=== PATIENT | female | born 1955 | race American Indian/Alaskan Native ===

== ENCOUNTER 2017-06-13 06:37 | Day surgery (SDC) | payer OTHER ==
[2017-06-13] MEDS ORDERED: WATER FOR IRRIG STERILE IR ONE (07:14)
--- NOTE | 2017-06-13 07:34 | Anesthesia Consultation ---
Anesthesia Consult and Med Hx Date of service: 06/13/17 - Airway Anesthetic Teeth Evaluation: Good, Dentures (permanent upper) ROM Head & Neck: Adequate Mental/Hyoid Distance: Adequate Mallampati Class: Class II Intubation Access Assessment: Probably Good - Pulmonary Exam CTA: Yes - Cardiac Exam Cardiac Exam: RRR - Pre-Operative Health Status ASA Pre-Surgery Classification: ASA3 Proposed Anesthetic Plan: MAC - Cardiovascular System Hx Hypertension: Yes - Endocrine Hx Non-Insulin Dependent Diabetes: Yes
--- NOTE | 2017-06-13 07:34 | Anesthesia Day of Surgery ---
Anesthesia Day of Surgery - Day of Surgery Patient Examined: Yes Patient H&P Reviewed: Yes Patient is NPO: Yes
[2017-06-13] MEDS ORDERED: DIPRIVAN 10 MG/ML IV ONE ×2 (07:35)
[2017-06-13] MEDS ORDERED: NACL 0.9% 1000 ML 1,000 ML IV SCH (08:00)
--- NOTE | 2017-06-13 09:28 | Short Stay Summary ---
Short Stay Documentation - Allergies and Medications Current Medications: Allergies No Known Allergies Allergy (Verified 06/12/17 12:33) Home Medications Medication Instructions Recorded Confirmed Last Taken Type Adult Low Dose Aspirin EC 81 mg PO DAILY 06/12/17 06/12/17 Unknown History Ergocalciferol 50,000 units PO QWEEK 06/12/17 06/13/17 06/10/17 History Glimepiride 4 mg PO DAILY 06/12/17 06/12/17 Unknown History Glipizide 10 mg PO DAILY 06/12/17 06/13/17 06/12/17 History Latanoprost 0.005% 1 drop OU HS 06/12/17 06/13/17 06/12/17 History Lisinopril 20 mg PO DAILY 06/12/17 06/13/17 06/12/17 History Pravastatin 20 mg PO DAILY 06/12/17 06/13/17 06/12/17 History metFORMIN 1,000 mg PO BID 06/12/17 06/13/17 06/12/17 History Active Medications Sodium Chloride (Nacl 0.9% 1000 Ml) 1,000 mls @ 50 mls/hr IV DIRECT ISATU Last Admin: 06/13/17 08:12 Dose: 50 mls/hr - Brief post op/procedure progress note Date of procedure: 06/13/17 Pre-op diagnosis: colon cancer screening Post-op diagnosis: same (1. Recta polyp 2. Internal hemorrhoids 3. Very poor prep) Procedure: Colonoscopy with cold biopsy polypectomy Anesthesia: MAC Findings: as above Surgeon: DENISA PAREDES Estimated blood loss: none Pathology: list (Rectal polyp) Specimen disposition: to lab Condition: stable - Disposition Condition at discharge: Stable Disposition: [id number] TO HOME OR SELFCARE Short Stay Discharge Plan Activity: no restrictions Weight Bearing Status: Full Weight Bearing Diet: regular, low salt Follow up with: GRISEL CORDERO MD [Primary Care Provider] - 7 Days
--- NOTE | 2017-06-13 09:58 | Post Anesthesia Evaluation ---
- Post Anesthesia Evaluation Patient Participated: Yes Airway Patent: Yes Stable Respiratory Function: Yes Nausea/Vomiting: No Temp > 96.8F: Yes Pain Manageable: Yes Adequeate Hydration: Yes Anesthesia Complications: No Block Receding Appropriately: Not Applicable (2030)
[2017-06-13 10:24] VITALS: BP 134/76
== END 2017-06-13 06:38 | disposition home or self-care (01) ==
LOC: GIO 06:37
PROVIDERS: ATTEND Internal Medicine Gastroenterology
DX: Z12.11 Encounter for screening for malignant neoplasm of colon (principal); K63.5 Polyp of colon; K64.0 First degree hemorrhoids; I10 Essential (primary) hypertension; E11.9 Type 2 diabetes mellitus without complications; Z79.84 Long term (current) use of oral hypoglycemic drugs; Z79.899 Other long term (current) drug therapy
CPT/HCPCS: 45380; 82962; 88305; J2704; J7030

== ENCOUNTER 2017-06-28 06:48 | Outpatient (CLI) | payer OTHER ==
--- NOTE | 2017-06-28 10:32 | Fluoroscopy Report ---
AIR CONTRAST BARIUM ENEMA: History: Constipation, colon cancer screening. The bowel is coated with barium and distended with air. The bowel contours are smooth and there is a normal haustral pattern. No inflammatory changes, fixed filling defects or evidence of neoplasm is seen. IMPRESSION: Normal study.
== END 2017-06-28 06:49 | disposition home or self-care (01) ==
LOC: FLUORO 06:48
PROVIDERS: ATTEND Internal Medicine Gastroenterology
DX: Z12.11 Encounter for screening for malignant neoplasm of colon (principal); K59.00 Constipation, unspecified; Z98.890 Other specified postprocedural states
CPT/HCPCS: 74280